=== PATIENT | male | born 1990 | race Caucasian/White ===

== ENCOUNTER 2017-05-23 08:17 | Emergency (ER) | END 2017-05-23 09:25 | disposition home or self-care (01) ==

== ENCOUNTER 2018-06-24 01:17 | Emergency (ER) | payer SELFPAY ==
[~2018-06-24 01:17] MED LIST: ACET325T33 PO; AZIT250T PO; BEN50 PO; BENZ-6 PO; CETI1TAB6 PO
== END 2018-06-24 03:22 | disposition left against medical advice (07) ==
LOC: E/R 01:17
DX: Z53.21 Procedure and treatment not carried out due to patient leaving prior to being seen by health care provider (principal)